=== PATIENT | female | born 1960 | race Caucasian/White ===

== ENCOUNTER 2018-04-16 12:12 | Emergency (ER) | payer OTHER ==
[~2018-04-16] VITALS: Ht 152.4 cm; Wt 52.2 kg
[~2018-04-16 12:12] MED LIST: CELEBREX100 MG PO; FIORICET 50-321 EACH PO; PREVACID30 MG PO; PROTONIX20 MG PO; RELPAX40 MG PO; SINGULAIR 5MG5 MG PO; SKELAXIN800 MG PO; TENORMIN25 MG; TOPAMAX25 M1 PO; TRAMADOL HCL-AP1 TAB PO; XOPENEX0.63 MG/3 IH; ZYRTEC10 MG
== END 2018-04-16 18:31 | disposition home or self-care (01) ==
LOC: ER 12:12
DX: K29.60 Other gastritis without bleeding (principal); R51 Headache

== ENCOUNTER 2019-06-17 12:54 | Emergency (ER) | payer OTHER ==
[~2019-06-17] VITALS: Ht 152.4 cm; Wt 54.4 kg
== END 2019-06-17 20:28 | disposition home or self-care (01) ==
LOC: ER 12:54
DX: J45.909 Unspecified asthma, uncomplicated (principal)

== ENCOUNTER 2019-10-28 08:39 | Outpatient (CLI) | payer OTHER | END 2019-10-28 08:42 | disposition home or self-care (01) | LOC: RAD 08:39 | DX: M12.852 Other specific arthropathies, not elsewhere classified, left hip (principal) ==

== ENCOUNTER 2020-08-27 20:59 | Inpatient (IN) | payer OTHER ==
[~2020-08-27] VITALS: Ht 152.4 cm; Wt 59.0 kg
[2020-08-30] MEDS ORDERED: ZOFRAN4 MG PO (11:18)
[2020-08-30] MEDS ORDERED: PROTONIX40 MG PO (11:19)
[2020-08-30] MEDS ORDERED: CIPRO500 MG PO (11:20)
[2020-08-30] MEDS ORDERED: ULTRACET PO (11:22)
== END 2020-08-30 13:24 | disposition home or self-care (01) | DRG 343 ==
LOC: ER 20:59 → SURG 08-28 00:47 → SEC-K 08-28 00:47 → O/R 08-28 08:16 → SURG 08-28 09:52
PROVIDERS: ADMIT Surgery; ATTEND Surgery
PROC: 0DTJ0ZZ Resection of Appendix, Open Approach (ICD-10-PCS; principal; 2020-08-28 10:45)
DX: K35.890 Other acute appendicitis without perforation or gangrene (principal); Z20.828 Contact with and (suspected) exposure to other viral communicable diseases; R11.2 Nausea with vomiting, unspecified; K21.9 Gastro-esophageal reflux disease without esophagitis

== ENCOUNTER → 2021-09-15 07:34 | Outpatient (CLI) | payer OTHER ==
[~2021-09-15 07:34] MED LIST changes: +CIPRO500 MG PO; +PROTONIX40 MG PO; +ULTRACET PO; +ZOFRAN4 MG PO
== END | disposition home or self-care (01) ==
LOC: NUCLEAR 09-02 07:00
PROVIDERS: ATTEND Internal Medicine Cardiovascular Disease
DX: M12.1 Kaschin-Beck disease (principal); M46.47 Discitis, unspecified, lumbosacral region; E55.9 Vitamin D deficiency, unspecified; M81.0 Age-related osteoporosis without current pathological fracture
CPT/HCPCS: 78315; A9503